=== PATIENT | female | born 1955 | race Caucasian/White ===

== ENCOUNTER → 2019-06-28 | Day surgery (SDC) | payer MEDICARE, OTHER ==
[~2019-06-28] MED LIST: Lactated Ringers 1,000 ML IV SCH; Midazolam 1 MG/ML 2 ML SDV ONE; Propofol 200 MG/20 ML SDV ONE; Sodium Chloride 0.9% 10 ML Syringe FLUSH PRN
--- NOTE | 2019-06-28 15:22 | PCM.PN ---
- General Info Date of Service: 06/28/19 - Review of Systems Systems Review Comment:: 64 y/o female here for colonoscopy. She has a history of colon polyps. She states that her most recent colonoscopy was about 4 years ago. I have discussed the proposed colonoscopy with the patient. We reviewed risks and the patient agrees accepting these risks. I reviewed her recent history and physical. No significant changes are noted. - Patient Data Vitals - Most Recent: Last Vital Signs Temp 98.3 F 06/28/19 14:20 Pulse 82 06/28/19 14:20 Resp 20 06/28/19 14:20 BP 152/68 H 06/28/19 14:20 Pulse Ox 96 06/28/19 14:20 Weight - Most Recent: 95.708 kg Med Orders - Current: Current Medications Lactated Ringer's (Ringers, Lactated) 1,000 mls @ 125 mls/hr IV ASD[facility]RECTED [facility] Last Admin: 06/28/19 14:18 Dose: 125 mls/hr Sodium Chloride (Saline Flush) 10 ml FLUSH ASDIRECTED PRN PRN Reason: Keep Vein Open - Problem List Review Problem List Initiated/Reviewed/Updated: Yes - Assessment Assessment:: history of colon polyps - Plan Plan:: colonoscopy
--- NOTE | 2019-06-28 15:57 | PCM.OPNOTE ---
- General Post-Op/Procedure Note Date of Surgery/Procedure: 06/28/19 Operative Procedure(s): Colonoscopy Findings: Large internal hemorrhoids Colon normal Pre Op Diagnosis: History of colon polyps Post-Op Diagnosis: Hemorrhoids Anesthesia Technique: MAC Primary Surgeon: Demian Brothers Pathology: none EBL in mLs: 0 Complications: None Condition: Good
[2019-06-28 17:18] VITALS: BP 153/83; PULSE 88
--- NOTE | 2019-06-28 19:47 | OR ---
Date of Procedure: 06/28/2019 PREOPERATIVE DIAGNOSIS: History of colon polyps. POSTOPERATIVE DIAGNOSIS: Internal hemorrhoids. OPERATIONS PERFORMED: Colonoscopy. INDICATIONS FOR SURGERY: This 64-year-old female has a known history of colon polyps. She comes today for surveillance colonoscopy. FINDINGS: No polyps were seen in today's exam. The patient's colon appeared normal except for large internal hemorrhoids. PROCEDURE IN DETAIL: The patient was taken to the operating room. She was given intravenous sedation, and with her in the left lateral decubitus position, digital rectal exam was performed showing no rectal masses. The Olympus colonoscope was inserted into the rectum. Retroflexed examination of the rectal canal was performed. The scope was then carefully advanced under direct visualization through the entire length of the colon until the cecum was reached here. Cecal acquisition was confirmed by noting the normal internal cecal anatomy including the appendiceal orifice and ileocecal valve. The light was also noted to transilluminate the abdominal wall in the right lower quadrant. After examining the cecum, the scope was slowly withdrawn sequentially re- examining the colonic segments until the entire colon and rectum had been fully examined. The scope was removed and the patient was taken from the operating room in satisfactory condition. ESTIMATED BLOOD LOSS: Zero. COMPLICATIONS: None. PROGNOSIS: Good. SAMSON Brothers MD /[id number]
== END | disposition home or self-care (01) ==
LOC: LL.SDS 13:10
PROVIDERS: ATTEND Surgery
DX: Z12.11 Encounter for screening for malignant neoplasm of colon (principal); K64.8 Other hemorrhoids; G35 Multiple sclerosis; G50.0 Trigeminal neuralgia; G89.29 Other chronic pain; Z88.5 Allergy status to narcotic agent; Z88.1 Allergy status to other antibiotic agents; Z88.2 Allergy status to sulfonamides; Z88.8 Allergy status to other drugs, medicaments and biological substances; Z86.010 Personal history of colon polyps; Z79.899 Other long term (current) drug therapy
CPT/HCPCS: 00811; J2250; J2704; J7120

== ENCOUNTER → 2022-04-08 | Day surgery (SDC) | payer MEDICARE, OTHER ==
[~2022-04-08] MED LIST changes: -Midazolam 1 MG/ML 2 ML SDV ONE
[2022-04-08 12:57] VITALS: BP 139/58; PULSE 88
== END | disposition home or self-care (01) ==
LOC: LL.SDS 08:15
PROVIDERS: ATTEND Surgery
DX: Z12.11 Encounter for screening for malignant neoplasm of colon (principal); K63.5 Polyp of colon; J45.909 Unspecified asthma, uncomplicated; J15.0 Pneumonia due to Klebsiella pneumoniae; I10 Essential (primary) hypertension; F17.210 Nicotine dependence, cigarettes, uncomplicated; E53.8 Deficiency of other specified B group vitamins; E78.5 Hyperlipidemia, unspecified; E66.9 Obesity, unspecified; G35 Multiple sclerosis; G43.909 Migraine, unspecified, not intractable, without status migrainosus; Z88.2 Allergy status to sulfonamides; Z88.5 Allergy status to narcotic agent; Z88.1 Allergy status to other antibiotic agents; Z88.8 Allergy status to other drugs, medicaments and biological substances; Z79.899 Other long term (current) drug therapy; Z79.51 Long term (current) use of inhaled steroids; Z79.810 Long term (current) use of selective estrogen receptor modulators (SERMs); Z86.010 Personal history of colon polyps; Z87.891 Personal history of nicotine dependence; Z90.49 Acquired absence of other specified parts of digestive tract; Z90.710 Acquired absence of both cervix and uterus; Z98.890 Other specified postprocedural states; Z68.39 Body mass index [BMI] 39.0-39.9, adult
CPT/HCPCS: 00812; J2704; J7120